=== PATIENT | male | born 1950 | race Caucasian/White ===

== ENCOUNTER → 2016-08-16 | Outpatient (CLI) | payer MEDICARE, MEDICAID ==
[~2016-08-16] MED LIST: ACTOS 45MG45 MG/TAB PO; ALTACE 2.5MG T2.5 MG PO; AMANTADINE HCL100 M1 PO; AMLOPIDINE; APRESOLINE50 MG PO; ATARAX 25MG25 MG/TAB PO; BUSPAR10 MG PO; CIPRO 250MG TA250 MG PO; CLONAZEPAM1 MG PO; DEPAKOTE DR500 MG PO; DEPAKOTE ER250 MG PO; DEPAKOTE ER500 MG PO; FERROUS SU325 MG/TAB PO; FLOMAX 0.40.4 MG/CAP PO; GLUCOPHAGE1000 MG PO; GLUCOPHAGE500 MG/TAB PO; HYDRALAZINE50 MG PO; HYDROXYZINE HCL25 MG PO; KLONOPIN 1MG1 MG PO; LEVOTHYROXIN0.075 MG PO; LEVOTHYROXINE0.1 MG PO; LEXAPRO20 MG PO; LIPITOR20 MG PO; LISINOPRIL/HCTZ1 TAB PO; LITHIUM CARBON300 MG PO; LOPID600 MG PO; NORVASC 5MG5 MG/TAB PO; PRILOSEC 20MG20 MG PO; PROZAC 10MG10 MG PO; REMERON 15M15 MG/TA1 PO; REMERON30 MG PO; RISPERDAL 0.5M0.5 MG PO; SEROQUEL200 MG PO; SEROQUEL300 MG PO; [UNRECOGNIZED DRUG - OTHER]
== END ==
LOC: BHSO 10:26
DX: F25.1 Schizoaffective disorder, depressive type (principal)

== ENCOUNTER → 2016-09-21 | Outpatient (CLI) | payer MEDICARE, MEDICAID | LOC: BHSO 09:13 | DX: F25.0 Schizoaffective disorder, bipolar type (principal) ==

== ENCOUNTER → 2016-10-18 | Outpatient (CLI) | payer MEDICARE, MEDICAID | LOC: BHSO 10:41 | DX: F25.1 Schizoaffective disorder, depressive type (principal) ==

== ENCOUNTER → 2016-11-16 | Outpatient (CLI) | payer MEDICARE, MEDICAID | LOC: BHSO 10:28 | DX: F25.1 Schizoaffective disorder, depressive type (principal) ==

== ENCOUNTER → 2017-02-11 | Outpatient (CLI) | payer MEDICARE, MEDICAID | LOC: BHSO 08:47 | DX: F25.0 Schizoaffective disorder, bipolar type (principal) ==

== ENCOUNTER → 2017-05-13 | Outpatient (CLI) | payer MEDICARE, MEDICAID | LOC: BHSO 14:21 | DX: F25.0 Schizoaffective disorder, bipolar type (principal) ==

== ENCOUNTER → 2017-06-08 | Outpatient (REF) ==
[2017-06-08 04:24] LABS: ADJUSTED CALCIUM 9.6 mg/dL (8.4-10.2); ALBUMIN 3.1 gm/dL (3.5-5.0); BILIRUBIN,TOTAL 0.4 mg/dL (0.0-1.0); CALCIUM 8.9 mg/dL (8.4-10.2); CREATININE, serum 1.02 mg/dL (0.66-1.25); POTASSIUM 3.1 mmol/L (3.4-5.0); TOTAL PROTEIN 5.3 gm/dL (6.4-8.2)
[2017-06-08 04:39] LABS: THYROXINE (T4)-TOTAL 5.5 ug/dL (5.5-11.0)
[2017-06-08 04:52] LABS: THYROID STIMULATING HORMONE 0.329 uIU/mL (0.465-4.680)
== END ==
LOC: ZCOL.LAB 04:10
PROVIDERS: Internal Medicine
DX: Z01.89 Encounter for other specified special examinations (principal)

== ENCOUNTER → 2017-08-03 | Outpatient (CLI) | payer MEDICARE, MEDICAID | LOC: BHSO 14:57 | DX: F25.0 Schizoaffective disorder, bipolar type (principal) | CPT/HCPCS: G0463 ==

== ENCOUNTER → 2017-10-05 | Outpatient (CLI) | payer MEDICARE, MEDICAID | LOC: BHSO 14:29 | DX: F25.0 Schizoaffective disorder, bipolar type (principal) | CPT/HCPCS: G0463 ==

== ENCOUNTER → 2018-01-09 | Outpatient (CLI) | payer MEDICARE, MEDICAID | LOC: BHSO 13:59 | DX: F25.0 Schizoaffective disorder, bipolar type (principal) | CPT/HCPCS: G0463 ==

== ENCOUNTER → 2018-04-26 | Outpatient (CLI) | payer MEDICARE, MEDICAID | LOC: BHSO 13:26 | DX: F25.1 Schizoaffective disorder, depressive type (principal) | CPT/HCPCS: G0463 ==

== ENCOUNTER → 2018-07-13 | Outpatient (CLI) | payer MEDICARE, MEDICAID | LOC: BHSO 14:06 | DX: F25.0 Schizoaffective disorder, bipolar type (principal) | CPT/HCPCS: G0463 ==

== ENCOUNTER → 2018-09-12 | Outpatient (CLI) | payer MEDICARE, MEDICAID | LOC: BHSO 14:34 | DX: F25.0 Schizoaffective disorder, bipolar type (principal) | CPT/HCPCS: G0463 ==

== ENCOUNTER → 2018-12-05 | Outpatient (CLI) | payer MEDICARE, MEDICAID | LOC: BHSO 14:49 | DX: F25.0 Schizoaffective disorder, bipolar type (principal) | CPT/HCPCS: G0463 ==

== ENCOUNTER → 2019-03-12 | Outpatient (CLI) | payer MEDICARE, MEDICAID | LOC: BHSO 13:51 | DX: F25.0 Schizoaffective disorder, bipolar type (principal) | CPT/HCPCS: G0463 ==

== ENCOUNTER → 2019-06-04 | Outpatient (CLI) | payer MEDICARE, MEDICAID | LOC: BHSO 12:47 | DX: F25.0 Schizoaffective disorder, bipolar type (principal) | CPT/HCPCS: G0463 ==

== ENCOUNTER → 2019-09-05 | Outpatient (CLI) | payer MEDICARE, MEDICAID | LOC: BHSO 13:10 | DX: F25.0 Schizoaffective disorder, bipolar type (principal) | CPT/HCPCS: G0463 ==

== ENCOUNTER → 2019-12-06 | Outpatient (CLI) | payer MEDICARE, MEDICAID | LOC: BHSO 14:00 | DX: F25.0 Schizoaffective disorder, bipolar type (principal) ==